=== PATIENT | female | born 1995 | race Caucasian/White ===

== ENCOUNTER 2019-08-08 09:44 | Emergency (ER) | payer OTHER ==
[~2019-08-08] VITALS: Ht 165.1 cm; Wt 68.9 kg
[2019-08-08] MEDS ORDERED: ONDANSETRON 4 MG TAB.RAPDIS ONE (09:58)
[2019-08-08] MEDS: ONDANSETRON 4 MG TAB.RAPDIS SL ONE (10:02)
--- NOTE | 2019-08-08 10:40 | NUR ---
Patient [employer] and [employer], on room air, breathing evenly and unlabored. kept comfortable, will continue to monitor accoridngly.
--- NOTE | 2019-08-08 10:52 | NUR ---
Patient discharge incustody accompanied by [employer], in no distress.
[2019-08-08 10:53] VITALS: BP 140/81
== END 2019-08-08 10:53 ==
LOC: ER 09:50
DX: R11.0 Nausea (principal); F11.10 Opioid abuse, uncomplicated; F19.10 Other psychoactive substance abuse, uncomplicated; F10.10 Alcohol abuse, uncomplicated; F17.200 Nicotine dependence, unspecified, uncomplicated; Y90.9 Presence of alcohol in blood, level not specified; Z02.89 Encounter for other administrative examinations
CPT/HCPCS: 93005; 99283; Q0162